=== PATIENT | female | born 1990 | race Caucasian/White ===

== ENCOUNTER → 2023-10-06 12:43 | Outpatient (BNVA) | payer OTHER, SELFPAY | PROVIDERS: Visit Provider Nurse Practitioner | DX: F41.8 Other specified anxiety disorders (principal); G43.909 Migraine, unspecified, not intractable, without status migrainosus; G62.9 Polyneuropathy, unspecified; R53.83 Other fatigue; E66.9 Obesity, unspecified | CPT/HCPCS: 80053; 83001; 83036; 84443; 85025; 85651; 86038; 86140; 86431 ==